=== PATIENT | male | born 2000 | race Two or more races ===

== ENCOUNTER 2023-06-10 11:53 | Outpatient (REF) | payer MEDICAID, SELFPAY ==
[2023-06-10 14:12] LABS: Iron 75 mcg/dL (45-160); Percent Iron Saturation 29 % (15-50); Total Iron Binding Capacity 257 mcg/dL (228-428); Unsaturated Iron Binding 182 ug/dL
[2023-06-10 14:35] LABS: Folate 7.4 ng/mL (> or = 4.0); Vitamin B12 585 pg/mL (200-900)
[2023-06-10 14:38] LABS: Ferritin 172 ng/mL (20-250)
[2023-06-11 04:30] LABS: HBS Num1 0.09 mIU/mL (0-7.99); HBc Num1 0.07 S/CO (0.00-0.79); HBsAGNum1 0.35 S/CO (0.00-0.99); Hepatitis A Antibody IgM 0.49 Index (0-0.79); Hepatitis B Core Antibody Nonreactive (Nonreactive); Hepatitis B Surface Antigen Negative (Negative); ~HepC Num1 0.13 S/CO (0.00-0.79); ~Hepatitis A Antibody IgM Nonreactive (Nonreactive); ~Hepatitis B Surface Antibody NONREACTIVE (Nonreactive); ~Hepatitis C Antibody Nonreactive (Nonreactive)
== END 2023-06-10 11:54 | disposition home or self-care (01) ==
LOC: HO.HMGCLDS 11:53
PROVIDERS: PCP Internal Medicine; Visit Provider Internal Medicine
DX: R53.83 Other fatigue (principal); R79.89 Other specified abnormal findings of blood chemistry
CPT/HCPCS: 36415; 82607; 82728; 82746; 83540; 86704; 86706; 86709; 86803; 87340